=== PATIENT | male | born 1985 | race Caucasian/White ===

== ENCOUNTER 2019-04-03 13:31 | Emergency (ER) | payer BC ==
--- OUTSIDE RECORDS SUMMARY | 2019-04-03 15:00 | XMS REPORT | Continuity of Care Document ---
:1985 External Reference #:[id number] Author Name Ava Lam MD Address [address] [place] [id number] Care Team Providers Name Role Phone Willa Shoemaker AUTO SERVICE INSTRUCTOR - Nurse Care Team Information Supervisor Volunteer Services Practitioner Brunilda Miles Care Team Information Supervisor Volunteer Services [phone] Problems Active Problems Provider Date Attention deficit hyperactivity disorder, Willa Shoemaker FNP Onset: combined type Tobacco user Willa Shoemaker FNP Onset: 12/17/2015 Mild intermittent asthma, uncomplicated Willa Shoemaker FNP Onset: Adjustment disorder with mixed emotional Willa Shoemaker FNP Onset: features Essential hypertension Willa Shoemaker FNP Onset: 09/26/2018 Social History Type Date Description Comments Sex Unknown Tobacco Use Start: Unknown Current Cigarette Smoker 1 Pack Daily Cigarette Use Chews Tobacco Former ETOH Use Denies alcohol use Tobacco Use Start: Unknown Patient is a current smoker, smokes every day Recreational Drug Use Denies Drug Use Tobacco Use Start: Unknown Heavy tobacco smoker (more than 10 cigarettes/day) Smoking Status Reviewed: 02/09/19 Heavy tobacco smoker (more than 10 cigarettes/day) Allergies, Adverse Reactions, Alerts Description No Known Drug Allergies Medications Active Medications SIG Qnty Indications Ordering Date Provider Lisinopril 1 by mouth every 30tabs I10 Clune, 01/25/2019 20mg day Jenniferzi, Tablets MUD ENGINEER Quetiapine Fumarate take 1 tablet by 90tabs F43.23 Clune, 09/26/2018 mouth 1 hour prior Willa, 25mg Tablets to sleep,if no MUD ENGINEER improvement in 3 days,may try 2 tablets as needed up to 4 tablets at night Adderall XR one by mouth every 30caps Z00.00 Navid, 12/17/2015 30mg Caps day mdd#1 Reference Willa ER 24HR #: [id number] MUD ENGINEER History Medications Chantix as per package 1tabs F17.210 Willa Shoemaker, 10/04/2018 - Starting Month directions - MUD ENGINEER 01/25/2019 Vaibhav 0.5mg X 11 & 1 mg X 42 Tablets Chantix 1 by mouth twice 30tabs F17.210 Willa Shoemaker, 10/04/2018 - 1mg a day *after MUD ENGINEER 01/25/2019 Tablets completing starter pack Immunizations CPT Code Status Date Vaccine Lot # [id number] Given 02/17/2016 Influenza Virus Vaccine Split Virus Use For Individual 3Yr Older Vital Signs Date Vital Result Comment 02/09/2019 8:50am BP Systolic Sitting Left Arm 151 mmHg BP Diastolic Sitting Left Arm 89 mmHg Body Temperature 96.6 F Heart Rate 77 /min Height 73.5 inches 6'1.50" Weight 223.00 lb BMI (Body Mass Index) 29.0 kg/m2 BSA (Body Surface Area) 2.26 m2 [place] body weight in kilograms 85 kg O2 % BldC Oximetry 100 % 01/25/2019 9:01am BP Systolic 160 mmHg BP Diastolic 92 mmHg Body Temperature 98.2 F Heart Rate 98 /min Respiratory Rate 16 /min Height 73.5 inches 6'1.50" Weight 221.00 lb BMI (Body Mass Index) 28.8 kg/m2 BSA (Body Surface Area) 2.26 m2 [place] body weight in kilograms 85 kg O2 % BldC Oximetry 98 % Results Description No Information Available Procedures Date Code Description Status 09/26/2018 46402 Brief Emotional/Behav Assessment W/ Scoring Doc Per Completed Standard Inst Medical Devices Description No Information Available Encounters Type Date Location Provider Dx Diagnosis Office Visit 11/09/2018 Family Medicine Navid F17.210 Nicotine dependence , 9:[address] Willa, cigarettes, MUD ENGINEER uncomplicated F43.23 Adjustment disorder with mixed anxiety and depressed mood M25.511 Pain in right shoulder Office Visit 10/04/2018 Family Navid, F43.23 Adjustment 11:[facility]a [facility] Beccavaibhavcamila, MUD ENGINEER disorder with RD mixed anxiety and depressed mood M25.511 Pain in right shoulder I10 Essential (primary) hypertension F17.210 Nicotine dependence, cigarettes, uncomplicated Z71.6 Tobacco abuse counseling Office 09/26/2018 Family Shoemaker, F90.2 Attention-deficit Visit 8:00a [facility] Beccavaibhavcamila, MUD ENGINEER hyperactivity RD disorder, combined type F43.23 Adjustment disorder with mixed anxiety and depressed mood I10 Essential (primary) hypertension M25.511 Pain in right shoulder F17.210 Nicotine dependence, cigarettes, uncomplicated Z71.6 Tobacco abuse counseling Assessments Date Code Description Provider 02/09/2019 M71.311 Other bursal cyst, right shoulder Ava Lam MD 02/09/2019 M75.41 Impingement syndrome of right shoulder Ava Lam MD 02/09/2019 S46.001D Unspecified injury of muscle(s) and Ava Lam MD tendon(s) of the rotator cuff of right shoulder, subsequent encounter 01/25/2019 M25.511 Pain in right shoulder Clune, Jennifervaibhavgh, MUD ENGINEER 01/25/2019 L60.8 Other nail disorders Clune, Katherinenifervaibhavgh, MUD ENGINEER 01/25/2019 G47.9 Sleep disorder, unspecified Clune, Jenniferleigh, MUD ENGINEER 01/25/2019 I10 Essential (primary) hypertension Clune, Jennifervaibhavgh, MUD ENGINEER 01/25/2019 F17.210 Nicotine dependence, cigarettes, Clune, Jenniferleigh, MUD ENGINEER uncomplicated 01/25/2019 Z71.6 Tobacco abuse counseling Clune, Jenniferleigh, MUD ENGINEER 11/09/2018 F17.210 Nicotine dependence, cigarettes, Clune, Jenniferleigh, MUD ENGINEER uncomplicated 11/09/2018 F43.23 Adjustment disorder with mixed anxiety Clune, Jenniferleigh, MUD ENGINEER and depressed mood 11/09/2018 M25.511 Pain in right shoulder Clune, Jenniferleigh, MUD ENGINEER 10/04/2018 F43.23 Adjustment disorder with mixed anxiety Clune, Jenniferleigh, MUD ENGINEER and depressed mood 10/04/2018 M25.511 Pain in right shoulder Clune, Jenniferleigh, MUD ENGINEER 10/04/2018 I10 Essential (primary) hypertension Willa Shoemaker, MUD ENGINEER 10/04/2018 F17.210 Nicotine dependence, cigarettes, Willa Shoemaker, MUD ENGINEER uncomplicated 10/04/2018 Z71.6 Tobacco abuse counseling MatthewBecca torozi, MUD ENGINEER 09/26/2018 F90.2 Attention-deficit hyperactivity Navid Willa, MUD ENGINEER disorder, combined type 09/26/2018 F43.23 Adjustment disorder with mixed anxiety Navid Loamritzi, MUD ENGINEER and depressed mood 09/26/2018 I10 Essential (primary) hypertension Willa Shoemaker, MUD ENGINEER 09/26/2018 M25.511 Pain in right shoulder Willa Shoemaker, MUD ENGINEER 09/26/2018 F17.210 Nicotine dependence, cigarettes, Becca Shoemakervaibhavcamila, MUD ENGINEER uncomplicated 09/26/2018 Z71.6 Tobacco abuse counseling Willa Shoemaker FNP Plan of Treatment Future Appointment(s):03/29/2019 8:15 am - Willa Shoemaker FNP at [facility] RD Functional Status Functional Condition Comment Date Status Contacts Active Mental Status Description No Information Available Referrals Refer to Reason for Referral Status Appt Date Conchis Marino persistent RT shoulder pain without Scheduled 2018 accident or injury. Rt hand dominant. [address], [address] [place] [address] [phone]
--- OUTSIDE RECORDS SUMMARY | 2019-04-03 15:00 | XMS REPORT | Continuity of Care Document ---
:1985 External Reference #:[id number] Author Name Willa Shoemkaer FNP Address [address] [place] [id number] Care Team Providers Name Role Phone Willa Shoemaker SILVERWARE SUPERVISOR - Nurse Care Team Information Submarine Operator Practitioner Brunilda Miles Care Team Information Submarine Operator [phone] Problems Active Problems Provider Date Attention deficit [...] (more than 10 cigarettes/day) Smoking Status Reviewed: 03/29/19 Heavy tobacco smoker (more than 10 cigarettes/day) Allergies, Adverse Reactions, Alerts Description No Known Drug Allergies Medications Active Medications SIG Qnty Indications Ordering Date Provider Lisinopril 1 by mouth every 30tabs I10 Navid, 01/25/2019 20mg day Jenniyvette Tablets LAUNDRY HELPER Quetiapine Fumarate take 1 tablet by 90tabs F43.23 Navid, 09/26/2018 mouth 1 hour prior Loferzi, 25mg Tablets to sleep,if no LAUNDRY HELPER improvement in 3 days,may try 2 tablets as needed up to 4 tablets at night Adderall XR one by mouth every 30caps Z00.00 Navid, 12/17/2015 30mg Caps day mdd#1 Reference BeccavaibhavcamilaHILTON 24HR #: [id number] LAUNDRY HELPER History Medications Chantix as per package 1tabs F17.210 Navid Beccazi, 10/04/2018 - Starting Month directions - LAUNDRY HELPER 01/25/2019 Vaibhav 0.5mg X 11 & 1 mg X 42 Tablets Chantix 1 by mouth twice 30tabs F17.210 Navid Beccazi, 10/04/2018 - 1mg a day *after LAUNDRY HELPER 01/25/2019 Tablets completing starter pack Immunizations CPT Code Status Date Vaccine Lot # [id number] Given 02/17/2016 Influenza Virus Vaccine Split Virus Use For Individual 3Yr Older Vital Signs Date Vital Result Comment 03/29/2019 8:13am BP Systolic 154 mmHg BP Diastolic 91 mmHg Body Temperature 97.6 F Heart Rate 74 /min Respiratory Rate 16 /min Height 71 inches 5'11" Weight 229.00 lb BMI (Body Mass Index) 31.9 kg/m2 BSA (Body Surface Area) 2.23 m2 [place] body weight in kilograms 78 kg O2 % BldC Oximetry 98 % 03/01/2019 2:10pm BP Systolic Sitting Left Arm 146 mmHg BP Diastolic Sitting Left Arm 98 mmHg Heart Rate 86 /min O2 % BldC Oximetry 96 % Results Description No Information Available Procedures Date Code Description Status 02/09/2019 39542 Radiology, Shoulder: Two Views (Sso) Completed Medical Devices Description No Information Available Encounters Type Date Location Provider Dx Diagnosis Office Visit 03/29/2019 Family Medicine Navid, I10 Essential (primary) 8:[address]a [address] Willa, hypertension LAUNDRY HELPER M75.41 Impingement syndrome of right shoulder F17.210 Nicotine dependence, cigarettes, uncomplicated Office Visit 03/01/2019 2:30p [facility]opa[facility], S46.001D Unsp inj Office MD Ava musc/tend the rotator cuff of r shoulder, subs M75.41 Impingement syndrome of right shoulder F17.210 Nicotine dependence, cigarettes, uncomplicated Office Visit 02/09/2019 8:45a Orthopaedic Office Ava Lam, M25.511 Pain in right MD shoulder M75.41 Impingement syndrome of right shoulder M71.311 Other bursal cyst, right shoulder S46.001D Unsp inj musc/tend the rotator cuff of r shoulder, subs Office Visit 01/25/2019 Family Shoemaker, M25.511 Pain in right 9:00a [facility] Beccavaibhavcamila, LAUNDRY HELPER shoulder RD L60.8 Other nail disorders G47.9 Sleep disorder, unspecified I10 Essential (primary) hypertension F17.210 Nicotine dependence, cigarettes, uncomplicated Z71.6 Tobacco abuse counseling Office Visit 11/09/2018 Family Shoemaker, F17.210 Nicotine 9:45a [facility] MARCIAL CrouchP dependence, RD cigarettes, uncomplicated F43.23 Adjustment disorder with mixed anxiety and depressed mood M25.511 Pain in right shoulder Office Visit 10/04/2018 Family Shoemaker F43.23 Adjustment 11:00a [facility] MARCIAL CrouchP disorder with RD mixed anxiety and depressed mood M25.511 Pain in right shoulder I10 Essential (primary) hypertension F17.210 Nicotine dependence, cigarettes, uncomplicated Z71.6 Tobacco abuse counseling Assessments Date Code Description Provider 03/29/2019 I10 Essential (primary) hypertension Navid MARCIAL CrouchP 03/29/2019 M75.41 Impingement syndrome of right shoulder Willa Shoemaker FNP 03/29/2019 F17.210 Nicotine dependence, cigarettes, Navid MARCIAL CrouchP uncomplicated 03/01/2019 S46.001D Unspecified injury of muscle(s) and Ava Lam MD tendon(s) of the rotator cuff of right shoulder, subsequent encounter 03/01/2019 M75.41 Impingement syndrome of right shoulder Ava Lam MD 03/01/2019 F17.210 Nicotine dependence, cigarettes, Ava Lam MD uncomplicated 02/09/2019 M25.511 Pain in right shoulder Ava Lam MD 02/09/2019 M75.41 Impingement syndrome of right shoulder Ava Lam MD 02/09/2019 M71.311 Other bursal cyst, right shoulder Ava Lam MD 02/09/2019 S46.001D Unspecified injury of muscle(s) and Ava Lam MD tendon(s) of the rotator cuff of right shoulder, subsequent encounter 01/25/2019 M25.511 Pain in right shoulder Willa Shoemaker, LAUNDRY HELPER 01/25/2019 L60.8 Other nail disorders Willa Shoemaker, LAUNDRY HELPER 01/25/2019 G47.9 Sleep disorder, unspecified Willa Shoemaker, LAUNDRY HELPER 01/25/2019 I10 Essential (primary) hypertension Willa Shoemaker, LAUNDRY HELPER 01/25/2019 F17.210 Nicotine dependence, cigarettes, Navid, Willa, LAUNDRY HELPER uncomplicated 01/25/2019 Z71.6 Tobacco abuse counseling Willa Shoemaker, LAUNDRY HELPER 11/09/2018 F17.210 Nicotine dependence, cigarettes, Willa Shoemaker, LAUNDRY HELPER uncomplicated 11/09/2018 F43.23 Adjustment disorder with mixed anxiety Clmuna, Jensukhwinder, LAUNDRY HELPER and depressed mood 11/09/2018 M25.511 Pain in right shoulder Willa Shoemaker, LAUNDRY HELPER 10/04/2018 F43.23 Adjustment disorder with mixed anxiety Clmuna, Jenrivkaferleigh, LAUNDRY HELPER and depressed mood 10/04/2018 M25.511 Pain in right shoulder Willa Shoemaker, LAUNDRY HELPER 10/04/2018 I10 Essential (primary) hypertension Willa Shoemaker, LAUNDRY HELPER 10/04/2018 F17.210 Nicotine dependence, cigarettes, Willa Shoemaker, LAUNDRY HELPER uncomplicated 10/04/2018 Z71.6 Tobacco abuse counseling Willa Shoemaker, LAUNDRY HELPER Plan of Treatment Future Appointment(s):05/08/2019 8:30 am - Willa Shoemaker FNP at [facility] RD Functional Status Functional Condition Comment Date Status Contacts Active Mental Status Description No Information Available Referrals Refer to Reason for Referral Status Appt Date Conchis Marino RPA-C persistent RT shoulder pain without accident Closed 02/08/2019 or injury. Rt hand dominant. [address], [address] [place] [address] [phone]
--- OUTSIDE RECORDS SUMMARY | 2019-04-03 15:00 | XMS REPORT | Continuity of Care Document ---
:1985 External Reference #:[id number] Author Name Willa Shoemaker FNP Address [address] [place] [id number] Care Team Providers Name Role Phone Willa Shoemaker EVENT MGR - Nurse Care Team Information Pest Technician [phone] Practitioner Brunilda Miles Care Team Information Pest Technician [phone] Problems Active Problems Provider Date Attention deficit [...] (more than 10 cigarettes/day) Smoking Status Reviewed: 01/25/19 Heavy tobacco smoker (more than 10 cigarettes/day) Allergies, Adverse Reactions, Alerts Description No Known Drug Allergies Medications Active Medications SIG Qnty Indications Ordering Date Provider Lisinopril 1 by mouth every 30tabs I10 Navid, 01/25/2019 20mg day Jensukhwinder Tablets FINISHING RANGE FEEDER Quetiapine Fumarate take 1 tablet by 90tabs F43.23 [place], 09/26/2018 mouth 1 hour prior Jenrivkaferleicamila, 25mg Tablets to sleep,if no FINISHING RANGE FEEDER improvement in 3 days,may try 2 tablets as needed up to 4 tablets at night Adderall XR one by mouth every 30caps Z00.00 Matthewmuna, 12/17/2015 30mg Caps day mdd#1 Reference BeccavaibhavcamilaHILTON 24HR #: [id number] FINISHING RANGE FEEDER History Medications Chantix as per package 1tabs F17.210 Lo Shoemakeramritzi, 10/04/2018 - Starting Month directions - FINISHING RANGE FEEDER 01/25/2019 Vaibhav 0.5mg X 11 & 1 mg X 42 Tablets Chantix 1 by mouth twice 30tabs F17.210 Katherine Shoemakerhenriquezi, 10/04/2018 - 1mg a day *after FINISHING RANGE FEEDER 01/25/2019 Tablets completing starter pack Immunizations CPT Code Status Date Vaccine Lot # [id number] Given 02/17/2016 Influenza Virus Vaccine Split Virus Use For Individual 3Yr Older Vital Signs Date Vital Result Comment 02/09/2019 8:50am BP Systolic Sitting Left Arm 151 mmHg BP Diastolic Sitting Left Arm 89 mmHg Body Temperature 96.6 F Heart Rate 77 /min Height 73.5 inches 6'1.50" Weight 223.00 lb BMI (Body Mass Index) 29.0 kg/m2 BSA (Body Surface Area) 2.26 m2 [place] body weight in kilograms 85 kg O2 % BldC Oximetry 100 % 01/25/2019 9:01am BP Systolic 160 mmHg BP Diastolic 92 mmHg Body Temperature 98.2 F Heart Rate 98 /min Respiratory Rate 16 /min Height 73.5 inches 6'1.50" Weight 221.00 lb BMI (Body Mass Index) 28.8 kg/m2 BSA (Body Surface Area) 2.26 m2 [place] body weight in kilograms 85 kg O2 % BldC Oximetry 98 % Results Description No Information Available Procedures Date Code Description Status 02/09/2019 23814 Radiology, Shoulder: Two Views (Sso) Completed 09/26/2018 85126 Brief Emotional/Behav Assessment W/ Scoring Doc Per Completed Standard Inst Medical Devices Description No Information Available Encounters Type Date Location Provider Dx Diagnosis Office Visit 02/09/2019 Orthopaedic Office Ava Lam, M25.511 Pain in right 8:45a shoulder M75.41 Impingement syndrome of right shoulder M71.311 Other bursal cyst, right shoulder S46.001D Unsp inj musc/tend the rotator cuff of r shoulder, subs Office Visit 01/25/2019 Family Shoemaker, M25.511 Pain in right 9:00a [facility] Beccavaibhavcamila, FINISHING RANGE FEEDER shoulder RD L60.8 Other nail disorders G47.9 Sleep disorder, unspecified I10 Essential (primary) hypertension F17.210 Nicotine dependence, cigarettes, uncomplicated Z71.6 Tobacco abuse counseling Office Visit 11/09/2018 Family Shoemaker, F17.210 Nicotine 9:45a [facility] Beccavaibhavcamila, FINISHING RANGE FEEDER dependence, RD cigarettes, uncomplicated F43.23 Adjustment disorder with mixed anxiety and depressed mood M25.511 Pain in right shoulder Office Visit 10/04/2018 Family Shoemaker, F43.23 Adjustment 11:00a [facility] [place] Beccavaibhavcamila FINISHING RANGE FEEDER disorder with RD mixed anxiety and depressed mood M25.511 Pain in right shoulder I10 Essential (primary) hypertension F17.210 Nicotine dependence, cigarettes, uncomplicated Z71.6 Tobacco abuse counseling Office 09/26/2018 Family Shoemaker, F90.2 Attention-deficit Visit 8:00a [facility] [place] Lorachidcamila, FINISHING RANGE FEEDER hyperactivity RD disorder, combined type F43.23 Adjustment disorder with mixed anxiety and depressed mood I10 Essential (primary) hypertension M25.511 Pain in right shoulder F17.210 Nicotine dependence, cigarettes, uncomplicated Z71.6 Tobacco abuse counseling Assessments Date Code Description Provider 02/09/2019 M25.511 Pain in right shoulder Ava Lam MD 02/09/2019 M75.41 Impingement syndrome of right shoulder Ava Lam MD 02/09/2019 M71.311 Other bursal cyst, right shoulder Ava Lam MD 02/09/2019 S46.001D Unspecified injury of muscle(s) and Ava Lam MD tendon(s) of the rotator cuff of right shoulder, subsequent encounter 01/25/2019 M25.511 Pain in right shoulder Willa Shoemaker FNP 01/25/2019 L60.8 Other nail disorders Willa Shoemaker FNP 01/25/2019 G47.9 Sleep disorder, unspecified Willa Shoemaker FNP 01/25/2019 I10 Essential (primary) hypertension Clune, Willa, FINISHING RANGE FEEDER 01/25/2019 F17.210 Nicotine dependence, cigarettes, Clune, Jenniferleigh, FINISHING RANGE FEEDER uncomplicated 01/25/2019 Z71.6 Tobacco abuse counseling Clune, Lofervaibhavgh, FINISHING RANGE FEEDER 11/09/2018 F17.210 Nicotine dependence, cigarettes, Clune, Jenniferleigh, FINISHING RANGE FEEDER uncomplicated 11/09/2018 F43.23 Adjustment disorder with mixed anxiety Clune, Jenniferleigh, FINISHING RANGE FEEDER and depressed mood 11/09/2018 M25.511 Pain in right shoulder Clune, Jenniferleigh, FINISHING RANGE FEEDER 10/04/2018 F43.23 Adjustment disorder with mixed anxiety Clune, Jenniferleigh, FINISHING RANGE FEEDER and depressed mood 10/04/2018 M25.511 Pain in right shoulder Clune, Katherinenifervaibhavgh, FINISHING RANGE FEEDER 10/04/2018 I10 Essential (primary) hypertension Clune, Katherineniferleigh, FINISHING RANGE FEEDER 10/04/2018 F17.210 Nicotine dependence, cigarettes, Clune, Jenniferleigh, FINISHING RANGE FEEDER uncomplicated 10/04/2018 Z71.6 Tobacco abuse counseling Matthewune, Beccavaibhavcamila, FINISHING RANGE FEEDER 09/26/2018 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, Jenniferleigh, FINISHING RANGE FEEDER disorder, combined type 09/26/2018 F43.23 Adjustment disorder with mixed anxiety Clune, Jenniferleigh, FINISHING RANGE FEEDER and depressed mood 09/26/2018 I10 Essential (primary) hypertension Clune, Lofervaibhavgh, FINISHING RANGE FEEDER 09/26/2018 M25.511 Pain in right shoulder Clune, Coopergh, FINISHING RANGE FEEDER 09/26/2018 F17.210 Nicotine dependence, cigarettes, Clune, Jenniferleigh, FINISHING RANGE FEEDER uncomplicated 09/26/2018 Z71.6 Tobacco abuse counseling Willa Shoemaker FNP Plan of Treatment Future Appointment(s):03/01/2019 2:30 pm - Ava Lam MD at [facility]/29/2019 8:15 am - Willa Shoemaker FNP at [facility]02/09/2019 - Ava Lam, MDM25.511 Pain in right zufnxlzaQ49.41 Impingement syndrome of right jptkbrjxY30.311 Other bursal cyst, right yapnfczfK88.001D Unspecified injury of muscle(s) and tendon(s) of the rotator cuff of right shoulder, subsequent encounter Functional Status Functional Condition Comment Date Status Contacts Active Mental Status Description No Information Available Referrals Refer to Reason for Referral Status Appt Date Conchis Marino persistent RT shoulder pain without accident Closed 02/08/2019 or injury. Rt hand dominant. [address], [address] [place] [address] [phone]
--- OUTSIDE RECORDS SUMMARY | 2019-04-03 15:00 | XMS REPORT | Continuity of Care Document ---
:1985 External Reference #:[id number] Author Name Ava Lam MD Address [address] [place] [id number] Care Team Providers Name Role Phone Willa Shoemaker TRAINING PROGRAM DEVELOPER - Nurse Care Team Information Contract Administration Coordinator Practitioner Brunilda Miles Care Team Information Contract Administration Coordinator [phone] Problems Active Problems Provider Date Attention deficit [...] (more than 10 cigarettes/day) Smoking Status Reviewed: 03/01/19 Heavy tobacco smoker (more than 10 cigarettes/day) Allergies, Adverse Reactions, Alerts Description No Known Drug Allergies Medications Active Medications SIG Qnty Indications Ordering Date Provider Lisinopril 1 by mouth every 30tabs I10 Clune, 01/25/2019 20mg day Jenniferleicamila, Tablets SENIOR COST ACCOUNTANT Quetiapine Fumarate take 1 tablet by 90tabs F43.23 une, 09/26/2018 mouth 1 hour prior Jenrivkaferzi, 25mg Tablets to sleep,if no SENIOR COST ACCOUNTANT improvement in 3 days,may try 2 tablets as needed up to 4 tablets at night Adderall XR one by mouth every 30caps Z00.00 Navid, 12/17/2015 30mg Caps day mdd#1 Reference HILTON Crouch 24HR #: [id number] SENIOR COST ACCOUNTANT History Medications Chantix as per package 1tabs F17.210 Willa Shoemaker, 10/04/2018 - Starting Month directions - SENIOR COST ACCOUNTANT 01/25/2019 Vaibhav 0.5mg X 11 & 1 mg X 42 Tablets Chantix 1 by mouth twice 30tabs F17.210 Willa Shoemaker, 10/04/2018 - 1mg a day *after SENIOR COST ACCOUNTANT 01/25/2019 Tablets completing starter pack Immunizations CPT Code Status Date Vaccine Lot # [id number] Given 02/17/2016 Influenza Virus Vaccine Split Virus Use For Individual 3Yr Older Vital Signs Date Vital Result Comment 03/01/2019 2:10pm BP Systolic Sitting Left Arm 146 mmHg BP Diastolic Sitting Left Arm 98 mmHg Heart Rate 86 /min O2 % BldC Oximetry 96 % 02/09/2019 8:50am BP Systolic Sitting Left Arm 151 mmHg BP Diastolic Sitting Left Arm 89 mmHg Body Temperature 96.6 F Heart Rate 77 /min Height 73.5 inches 6'1.50" Weight 223.00 lb BMI (Body Mass Index) 29.0 kg/m2 BSA (Body Surface Area) 2.26 m2 [place] body weight in kilograms 85 kg O2 % BldC Oximetry 100 % Results Description No Information Available Procedures Date Code Description Status 02/09/2019 20213 Radiology, Shoulder: Two Views (Sso) Completed 09/26/2018 30848 Brief Emotional/Behav Assessment W/ Scoring Doc Per Completed Standard Inst Medical Devices Description No Information Available Encounters Type Date Location Provider Dx Diagnosis Office Visit 02/09/2019 Orthopaedic Office Ava Lam M25.511 Pain in right 8:45a shoulder M75.41 Impingement syndrome of right shoulder M71.311 Other bursal cyst, right shoulder S46.001D Unsp inj musc/tend the rotator cuff of r shoulder, subs Office Visit 01/25/2019 Family Didi Shoemaker.511 Pain in right 9:00a Medicine Theresa Willa, ELENITA shoulder RD L60.8 Other nail disorders G47.9 Sleep disorder, unspecified I10 Essential (primary) hypertension F17.210 Nicotine dependence, cigarettes, uncomplicated Z71.6 Tobacco abuse counseling Office Visit 11/09/2018 Family Shoemaker, F17.210 Nicotine 9:45a Medicine [place], SENIOR COST ACCOUNTANT dependence, RD cigarettes, uncomplicated F43.23 Adjustment disorder with mixed anxiety and depressed mood M25.511 Pain in right shoulder Office Visit 10/04/2018 Family Shoemaker, F43.23 Adjustment 11:00a Medicine [place], SENIOR COST ACCOUNTANT disorder with RD mixed anxiety and depressed mood M25.511 Pain in right shoulder I10 Essential (primary) hypertension F17.210 Nicotine dependence, cigarettes, uncomplicated Z71.6 Tobacco abuse counseling Office 09/26/2018 Family Shoemaker F90.2 Attention-deficit Visit 8:00a Medicine Theresa Willa, SENIOR COST ACCOUNTANT hyperactivity RD disorder, combined type F43.23 Adjustment disorder with mixed anxiety and depressed mood I10 Essential (primary) hypertension M25.511 Pain in right shoulder F17.210 Nicotine dependence, cigarettes, uncomplicated Z71.6 Tobacco abuse counseling Assessments Date Code Description Provider 03/01/2019 M75.41 Impingement syndrome of right shoulder Ava Lam MD 03/01/2019 S46.001D Unspecified injury of muscle(s) and Ava Lam MD tendon(s) of the rotator cuff of right shoulder, subsequent encounter 02/09/2019 M25.511 Pain in right shoulder Ava [...] FNP 01/25/2019 I10 Essential (primary) hypertension Clune, Loferzi, SENIOR COST ACCOUNTANT 01/25/2019 F17.210 Nicotine dependence, cigarettes, Clune, Jenniferleigh, SENIOR COST ACCOUNTANT uncomplicated 01/25/2019 Z71.6 Tobacco abuse counseling Clune, Lofervaibhavgh, SENIOR COST ACCOUNTANT 11/09/2018 F17.210 Nicotine dependence, cigarettes, Clune, Jenniferleigh, SENIOR COST ACCOUNTANT uncomplicated 11/09/2018 F43.23 Adjustment disorder with mixed anxiety Clune, Jenniferleigh, SENIOR COST ACCOUNTANT and depressed mood 11/09/2018 M25.511 Pain in right shoulder Clune, Jenniferleigh, SENIOR COST ACCOUNTANT 10/04/2018 F43.23 Adjustment disorder with mixed anxiety Clune, Jenniferleigh, SENIOR COST ACCOUNTANT and depressed mood 10/04/2018 M25.511 Pain in right shoulder Clune, Jenniferleigh, SENIOR COST ACCOUNTANT 10/04/2018 I10 Essential (primary) hypertension Clune, Jenniferleigh, SENIOR COST ACCOUNTANT 10/04/2018 F17.210 Nicotine dependence, cigarettes, Clune, Jenniferleigh, SENIOR COST ACCOUNTANT uncomplicated 10/04/2018 Z71.6 Tobacco abuse counseling Clmuna, Beccavaibhavgh, SENIOR COST ACCOUNTANT 09/26/2018 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, Jenniferleigh, SENIOR COST ACCOUNTANT disorder, combined type 09/26/2018 F43.23 Adjustment disorder with mixed anxiety Clune, Jenniferleigh, SENIOR COST ACCOUNTANT and depressed mood 09/26/2018 I10 Essential (primary) hypertension Clune, Loferzi, SENIOR COST ACCOUNTANT 09/26/2018 M25.511 Pain in right shoulder Clune, Lofervaibhavgh, SENIOR COST ACCOUNTANT 09/26/2018 F17.210 Nicotine dependence, cigarettes, Clune, Jenniferleigh, SENIOR COST ACCOUNTANT uncomplicated 09/26/2018 Z71.6 Tobacco abuse counseling Willa Shoemaker FNP Plan of Treatment Future Appointment(s):04/12/2019 8:00 am - A[facility] at [facility]/29/2019 8:15 am - Willa Shoemaker F[facility] at [facility]03/01/2019 - Ava Lam, MDM75.41 Impingement syndrome of right esnjyqsbJ43.001D Unspecified injury of muscle(s) and tendon(s) of the rotator cuff of right shoulder, subsequent encounterNew Therapy:Physical/Occupational Therapy Functional Status Functional Condition Comment Date Status Contacts Active Mental Status Description No Information Available Referrals Refer to Reason for Referral Status Appt Date Conchis Marino RPA-C persistent RT shoulder pain without accident Closed 02/08/2019 or injury. Rt hand dominant. [address], [address] [place] [address] [phone]
--- NOTE | 2019-04-03 15:15 | UC ---
Back Pain HPI - HPI Summary HPI Summary: 34-year-old male with a history of sciatica. He states over the past week he's been experiencing more right lower back pain with sciatic symptoms. He denies any saddle anesthesia no numbness or tingling in his arms or legs. - History of Current Complaint Stated Complaint: LOW BACK PAIN Time Seen by Provider: 04/03/19 15:03 Hx Obtained From: Patient Onset/Duration: Gradual Onset Timing: Constant Severity Initially: Mild Severity Currently: Mild Character: Sharp, Dull, Aching Aggravating Factor(s): Movement, Lifting, Bending, Walking Alleviating Factor(s): Nothing Associated Signs And Symptoms: Positive: Negative. Negative: Weakness, Numbness , Tingling, Abdominal Pain, Flank Pain, Bladder Incontinence, Bowel Incontinence Related History: Similar Episode Dx As - Sciatica history - Allergies/Home Medications Allergies/Adverse Reactions: Allergies Allergy/AdvReac Type Severity Reaction Status Date / Time No Known Allergies Allergy Verified 04/03/19 15:02 Home Medications: Home Medications Dextroamphetamine/Amphetamine [Adderall 30 mg-] 1 tab PO DAILY 04/03/19 [ History Confirmed 04/03/19] Lisinopril TAB* [Prinivil TAB*] 20 mg PO DAILY 04/03/19 [History Confirmed 04/03] Naproxen Sodium [Aleve] 440 mg PO Q8H PRN 04/03/19 [History Confirmed 04/03/19] PMH/Surg Hx/FS Hx/Imm Hx - Additional Past Medical History Additional PMH: History of sciatica. Previously Healthy: Yes Cardiovascular History: Hypertension - Family History Known Family History: Positive: Non-Contributory - Social History Occupation: Employed Full-time Review of Systems All Other Systems Reviewed And Are Negative: Yes Musculoskeletal: Positive: Other: - Right low back pain similar to his right sciatica. More than here Neurological: Positive: Negative. Negative: Weakness, Paresthesia, Numbness Is Patient Immunocompromised?: No Physical Exam Triage Information Reviewed: Yes Appearance: Well-Appearing, No Pain Distress, Well-Nourished Vital Signs Reviewed: Yes Respiratory: Positive: Lungs clear, Normal breath sounds, No respiratory distress, No accessory muscle use Cardiovascular: Positive: RRR, No Murmur, Pulses Normal, Brisk Capillary Refill Musculoskeletal: Positive: Strength Intact, ROM Intact, Other: - Patient moves fairly slowly due to the pain. Pain on palpation to the right mid buttock. Negative straight leg raise. Neurological: Positive: Alert, Muscle Tone Normal Psychological Exam: Normal Skin Exam: Normal Back Pain Course/Dx - Course Course Of Treatment: I believe this is the patient's typical sciatica. He is given Toradol 30 mg IM here and a prescription for Flexeril. I'm going to refer him to Dr. Almonte who is a back specialist. Patient's to avoid movements that cause pain. No work until . - Differential Dx/Diagnosis Provider Diagnosis: Right sided sciatica Discharge ED - Sign-Out/Discharge Documenting (check all that apply): Patient Departure All imaging exams completed and their final reports reviewed: No Studies - Discharge Plan Condition: Fair Disposition: HOME Prescriptions: Cyclobenzaprine TAB* [Flexeril 10 MG TAB*] 10 mg PO TID PRN 5 Days #15 tab PRN Reason: Pain - Mild Patient Education Materials: Sciatica (ED) Forms: *Work Release Referrals: Becca Shoemaker NP [Primary Care Provider] - Chris Almonte MD [Medical Doctor] - Additional Instructions: Avoid movements that cause pain, avoid excessive sitting. May apply heat to the sore areas. May take Aleve 2 tablets twice a day for pain. Follow-up with Dr. Almonte if you have continued pain without improvement. - Billing Disposition and Condition Condition: FAIR Disposition: Home
[2019-04-03 15:16] VITALS: BP 127/79
[2019-04-03] MEDS ORDERED: Ketorolac INJ* 30 MG/ML 1 ML VIAL IM ONE (15:28)
== END 2019-04-03 15:57 | disposition home or self-care (01) ==
LOC: UCCORT 13:31
DX: M54.41 Lumbago with sciatica, right side (principal); I10 Essential (primary) hypertension
CPT/HCPCS: 96372; 99202; G0463; J1885